=== PATIENT | female | born 1965 | race Caucasian/White ===

== ENCOUNTER 2019-02-14 23:33 | Emergency (ER) | payer OTHER ==
[2019-02-15] MEDS ORDERED: Acetaminophen 500 MG TAB ONE (00:01)
[2019-02-15] MEDS ORDERED: Ketorolac Tromethamine 60 MG/2 ML VIAL ONE (00:01)
[2019-02-15] MEDS ORDERED: Ondansetron ODT 4 MG TAB ONE (00:01)
== END 2019-02-15 00:33 | disposition home or self-care (01) ==
LOC: NAV ERS 23:33
DX: G89.29 Other chronic pain (principal); M54.9 Dorsalgia, unspecified; M54.2 Cervicalgia; R11.0 Nausea; K21.9 Gastro-esophageal reflux disease without esophagitis; I10 Essential (primary) hypertension; E03.9 Hypothyroidism, unspecified; F41.9 Anxiety disorder, unspecified; F17.290 Nicotine dependence, other tobacco product, uncomplicated; Z79.899 Other long term (current) drug therapy
CPT/HCPCS: 96372; 99283; J1885; Q0162